=== PATIENT | male | born 1950 | race Two or more races ===

== ENCOUNTER → 2019-10-10 | Outpatient (CLI) | payer OTHER ==
[~2019-10-10] MED LIST: ASPIR 8181 MG; CRESTOR20 MG; NORVASC5 MG; OMEPRAZOLE MAGN20 MG; TIAZAC300 MG
== END | disposition home or self-care (01) ==
LOC: RAD 10:07 → MRI 10:07
DX: J43.8 Other emphysema (principal); G47.33 Obstructive sleep apnea (adult) (pediatric); J45.998 Other asthma
CPT/HCPCS: 73718

== ENCOUNTER 2019-12-22 08:02 | Emergency (ER) | payer OTHER ==
[~2019-12-22] VITALS: Ht 167.6 cm; Wt 91.2 kg
[2019-12-22] MEDS ORDERED: XARELTO20 M1 PO (08:13)
[2019-12-22] MEDS ORDERED: SINGULAIR10 MG PO (08:13)
[2019-12-22] MEDS ORDERED: PEPCID AC20 MG PO (13:40)
== END 2019-12-22 14:00 | disposition home or self-care (01) ==
LOC: ER 08:02
DX: K57.90 Diverticulosis of intestine, part unspecified, without perforation or abscess without bleeding (principal); K80.20 Calculus of gallbladder without cholecystitis without obstruction

== ENCOUNTER 2019-12-27 08:32 | Outpatient (CLI) | payer OTHER ==
[~2019-12-27 08:32] MED LIST changes: +PEPCID AC20 MG PO; +SINGULAIR10 MG PO; +XARELTO20 M1 PO
== END 2019-12-27 08:39 | disposition home or self-care (01) ==
LOC: TOM 08:32
DX: R10.84 Generalized abdominal pain (principal); R19.8 Other specified symptoms and signs involving the digestive system and abdomen; R19.00 Intra-abdominal and pelvic swelling, mass and lump, unspecified site

== ENCOUNTER → 2021-07-17 | Outpatient (CLI) | payer OTHER | END | disposition home or self-care (01) | LOC: TOM 13:41 | PROVIDERS: ATTEND Otolaryngology | DX: G44.89 Other headache syndrome (principal); I77.89 Other specified disorders of arteries and arterioles ==

== ENCOUNTER → 2021-07-31 09:00 | Outpatient (CLI) | payer OTHER | END | disposition home or self-care (01) | LOC: PPH VACUNA 09:00 | PROVIDERS: ATTEND Emergency Medicine Pediatric Emergency Medicine | DX: Z23 Encounter for immunization (principal) ==

== ENCOUNTER 2022-01-21 10:07 | Outpatient (CLI) | payer OTHER | END 2022-01-21 10:19 | disposition home or self-care (01) | LOC: MRI 10:07 | PROVIDERS: ATTEND Physical Medicine & Rehabilitation | DX: M25.561 Pain in right knee (principal) | CPT/HCPCS: 73718 ==

== ENCOUNTER → 2023-07-15 | Emergency (ER) | payer OTHER ==
[~2023-07-15] VITALS: Ht 167.6 cm; Wt 89.8 kg
[~2023-07-15] MED LIST changes: +DYRENIUM100 MG
== END | disposition left against medical advice (07) ==
LOC: ER 04:07
DX: Z53.21 Procedure and treatment not carried out due to patient leaving prior to being seen by health care provider (principal)

== ENCOUNTER 2023-12-07 07:55 | Outpatient (CLI) | payer OTHER | END 2023-12-07 08:02 | disposition home or self-care (01) | LOC: SONOGRAMA 07:55 | PROVIDERS: ATTEND Urology | DX: N40.1 Benign prostatic hyperplasia with lower urinary tract symptoms (principal); R35.1 Nocturia; R39.12 Poor urinary stream; R39.14 Feeling of incomplete bladder emptying; Z80.42 Family history of malignant neoplasm of prostate; I25.84 Coronary atherosclerosis due to calcified coronary lesion; E78.2 Mixed hyperlipidemia; R73.9 Hyperglycemia, unspecified ==

== ENCOUNTER → 2024-08-28 | Emergency (ER) | payer OTHER ==
[~2024-08-28] VITALS: Ht 167.6 cm; Wt 86.6 kg
[~2024-08-28] MED LIST changes: +IRBESARTAN150 MG PO; +TRIAMTERENE-HC1 EAC1 PO; +ZETIA10 MG PO
[2024-08-28 11:18] LABS: MEAN CELL VOLUME 85.6 fL (80.0-100.00); MEAN CORPUSCULAR HEMOGLOBIN 29.1 pg (27.00-32.0); PLATELET COUNT 220 K/uL (150-450); RED BLOOD COUNT 5.84 M/uL (4.00-6.00); RED CELL DISTRIBUTION WIDTH 14.3 % (11.5-14.5)
== END | disposition home or self-care (01) ==
LOC: ER 08:52
PROVIDERS: General Practice
DX: R05.9 Cough, unspecified (principal); Z20.822 Contact with and (suspected) exposure to COVID-19